=== PATIENT | male | born 1975 | race Two or more races ===

== ENCOUNTER 2025-05-11 07:15 | Emergency (ER) | payer MEDICAID, SELFPAY ==
--- OUTSIDE RECORDS SUMMARY | 2024-07-13 05:00 | XMS_ITS ---
Author Organization [facility] Address [address] [place] [address] Care Team Providers Care Senior Sql Dba Name Role Phone [facility] Provi adrian [phone] Beryl Brewer Unavailable [phone] REASON FOR VISIT Housing Encounters Encounter Location Date Provider Diagnosis [facility] [address] [place], [place] [id number] 07/13/2024 Beryl Brewer Plan Of Treatment No Information Progress Notes * Levar ROMANDOB:1975 ([age] yo M)Acc No.[id number]:07/13/2024 Case Management Patient: Levar MEJIA Provider: Elton Brewer :1975 A ge:49 Y S ex:Male Date:07/13/2024 Address:[facility] [address] [place] [id number] Pcp:[facility] [email or web address] Subjective: * Chief Complaints: * 1 . Housing. * Medical History: Objective: Assessment: Plan: * Treatment: * Images: Billing Information: * Visit Code: * Procedure Codes: Care Plan Details* * Electronic signature of Mauri Brewer on 05/11/2025 at 07:42 AM EDT Sign off status: Pending * Provider: Elton Brewer Date: 09/13/2023 Generated for Annie prasad/Cb/eTmoiz on: 07:42 AM EDT
--- NOTE | ~2025-05-11 | XR_ITS ---
EXAMINATION: XR CHEST 2 VIEWS HISTORY: Cough x 4 weeks COMPARISON: There are no prior studies available for comparison. FINDINGS: PA and lateral views of the chest are submitted. There is airspace opacity in the right lower lobe, consistent with pneumonia. The left lung is clear. There is no pleural effusion, pneumothorax, or pulmonary vascular congestion. The heart is normal in size. The bones are intact. XR/XR chest 2V IMPRESSION: Right lower lobe pneumonia. Follow-up is recommended to document resolution. Electronically signed by: Viraj Weinstein MD 05/11/2025 08:03 AM EDT
--- NOTE | ~2025-05-11 | US_ITS ---
EXAMINATION: US SCROTUM WITH DOPPLER COMPLETE, US SCROTUM HISTORY: pain radiating to testicles. COMPARISON: There are no prior studies available for comparison. FINDINGS: Real-time grayscale ultrasound imaging of the scrotum was performed. Color and spectral Doppler analysis was also performed. RIGHT TESTICLE: The right testis measures 4.1 x 2.6 x 3.0 cm and demonstrates normal homogeneous echotexture. No masses are seen. The right testis demonstrates normal arterial and venous color Doppler and spectral waveforms. RIGHT EPIDIDYMIS: Normal in size, shape, and vascularity. LEFT TESTICLE: The left testis measures 4.0 x 2.6 x 3.4 cm and demonstrates normal homogeneous echotexture. No masses are seen. The left testis demonstrates normal arterial and venous color Doppler and spectral waveforms. LEFT EPIDIDYMIS: Normal in size, shape, and vascularity. VARICOCELE: None. HYDROCELE: No significant hydrocele is seen. OTHER COMMENTS: None. US/US scrotum doppler IMPRESSION: Unremarkable scrotal ultrasound. Electronically signed by: Viraj Weinstein MD 05/11/2025 10:43 AM EDT
--- NOTE | ~2025-05-11 | US_ITS ---
EXAMINATION: US SCROTUM WITH DOPPLER COMPLETE, US SCROTUM HISTORY: pain radiating to testicles. COMPARISON: There are no prior studies available for comparison. FINDINGS: Real-time grayscale ultrasound imaging of the scrotum was performed. Color and spectral Doppler analysis was also performed. RIGHT TESTICLE: The right testis measures 4.1 x 2.6 x 3.0 cm and demonstrates normal homogeneous echotexture. No masses are seen. The right testis demonstrates normal arterial and venous color Doppler and spectral waveforms. RIGHT EPIDIDYMIS: Normal in size, shape, and vascularity. LEFT TESTICLE: The left testis measures 4.0 x 2.6 x 3.4 cm and demonstrates normal homogeneous echotexture. No masses are seen. The left testis demonstrates normal arterial and venous color Doppler and spectral waveforms. LEFT EPIDIDYMIS: Normal in size, shape, and vascularity. VARICOCELE: None. HYDROCELE: No significant hydrocele is seen. OTHER COMMENTS: None. US/US scrotum IMPRESSION: Unremarkable scrotal ultrasound. Electronically signed by: Viraj Weinstein MD 05/11/2025 10:43 AM EDT
[2025-05-11 07:19] VITALS: BP 163/98; PULSE 82; RESP 18; TEMP 36.7; O2SAT 99; BMI 26.9
--- OUTSIDE RECORDS SUMMARY | 2025-05-11 07:43 | XMS_ITS | Clinical Summary ---
Author Organization [facility] Address [address] [place] [address] Phone Care Team Providers Care Chemical Plant Manager Name Role Phone Sunday Healy NP Primary Care Provider [phone] Allergies Active Allergy Reactions Criticality Noted Date Comments Aspirin 08/31/2024 Encounters Date Type Department Care Team Description 03/08/2025 3:47 PM EDT - 03/08/2025 8:11 PM EDT Emergency [facility] Emergency [address] [place] [address] Maddy Jaramillo MD Acute nonintractable headache, unspecified headache type (Primary Dx); Lightheadedness Discharge Disposition: Home or Self Care from Last 3 Months Medical History Medical History Date Comments Hypertension Depression Anxiety Social History Tobacco Use Types Packs/Day Years Used Date Smoking Tobacco: Never Assessed Sex and Gender Information Value Date Recorded Sex Assigned at Male 08/31/2024 5:22 PM EST Legal Sex Male 5:20 AM EST Gender Identity Male 08/31/2024 5:22 PM EST Sexual Orientation Straight 08/31/2024 5: 22 PM EST Obstetrics History Last Filed Vital Signs Vital Sign Reading Time Taken Comments Blood Pressure 142/111 03/08/2025 6:23 PM EDT Pulse 76 03/08/2025 6:23 PM EDT Temperature 36.8 C (98.2 F) 03/08/2025 6:23 PM EDT Respiratory Rate 18 03/08/2025 6:23 PM EDT Oxygen Saturation 98% 03/08/2025 6:23 PM EDT Inhaled Oxygen Concentration - - Weight 77.1 kg (170 lb) 03/08/2025 11:43 AM EDT Height 172.7 cm (5' 8 ) 03/08/2025 11:43 AM EDT Body Mass Index 25.85 03/08/2025 11:43 AM EDT Plan of Treatment Health Maintenance Due Date Last Done Comments Colorectal Cancer Screening: Colonoscopy 1977 Hepatitis A Vaccines (1 of 2 - Risk 2-dose series) 1996 Hepatitis B Vaccines (1 of 3 - 19+ 3-dose series) 1996 Pneumococcal Vaccine: Pediatrics (0 to 5 Years) and At-Risk Patients (6 to 49 Years) (2 of 2 - PCV) 05/07/2020 05/07/2019 HIV Screening 07/07/2022 Social Influencers of Health Screening 07/07/2022 Depression Screening 08/04/2024 Influenza Vaccine (#1) 2025 Hypertension/CHF/CAD Annual BMP Blood Test 03/08/2026 03/08/2025, 10/19/2024, 05/24/2022 Cholesterol Screening (Lipid Panel) 05/24/2027 05/24/2022, 05/24/2022, 05/07/2019 DTaP,Tdap,and Td Vaccines (2 - Td or Tdap) 05/07/2029 05/07/2019 RSV Immunization Adult Patients (1 - 1-dose 75+ series) 2052 Hepatitis C Screening Completed 05/24/2022 COVID-19 Vaccine Completed 09/21/2024 HIB Vaccines Aged Out No longer eligi ble based on patient's age to complete this topic HPV Vaccines Aged Out No longer eligi ble based on patient's age to complete this topic IPV Vaccines Aged Out No longer eligi ble based on patient's age to complete this topic MMR Vaccines Aged Out No longer eligi ble based on patient's age to complete this topic Meningococcal ACWY Vaccine Aged Out N o longer eligible based on patient's age to complete this topic Meningococcal B Vaccine Aged Out No l onger eligible based on patient's age to complete this topic RSV Immunization Patients Under 20 months Aged Out No longer eligible b ased on patient's age to complete this topic Varicella Vaccines Aged Out No longer eligible based on patient's age to complete this topic Procedures Procedure Name Priority Date/Time Associated Diagnosis Comments ECG ANNOTATED 03/11/2025 CT HEAD WO CONTRAST STAT 03/08/2025 6 :41 PM EDT TROPONIN I HIGH SENSITIVITY Timed 03/08/2025 1:31 PM EDT XR CHEST 2 VIEWS STAT 03/08/2025 12:2 8 PM EDT CBC WITH AUTO DIFFERENTIAL STAT 03/08/2025 11:59 AM EDT B-TYPE NATRIURETIC PEPTIDE STAT 03/08/2025 11:59 AM EDT MAGNESIUM STAT 03/08/2025 11:59 AM EDT LIPASE STAT 03/08/2025 11:59 AM EDT COMPREHENSIVE METABOLIC PANEL STAT 03/08/2025 11:59 AM EDT CBC AND DIFFERENTIAL STAT 03/08/2025 11:59 AM EDT TROPONIN I HIGH SENSITIVITY Timed 03/08/2025 11:59 AM EDT ECG 12-LEAD STAT 03/08/2025 11:52 AM EDT from Last 3 Months Results * ECG-Annotated (03/11/2025) us Provider Onbase MD ECG ORDERABLES Final Result * CT Head wo Contrast (03/08/2025 6:41 PM EDT) Anatomical Region Laterality Modality Head and Neck Computed Tomogra phy 03/08/2025 6:58 PM EDT Impressions 03/08/2025 6:58 PM EDT Impression: 1. No acute intracranial abnormalities. This document has been electronically signed by: Tamir Quan MD on 03/08/2025 18:58:26 Narrative 03/08/2025 6:58 PM EDT INDICATION: hedache.dizzines since yesterday; +cocaine use CT head without contrast Comparison: None Findings: No intracranial mass, midline shift, hydrocephalus, or acute hemorrhage. No CT evidence of acute ischemia. Visualized paranasal sinuses and mastoid air cells normal. Orbits unremarkable. No skull fracture Procedure Note Tamir Quan MD - 03/08/2025 INDICATION: hedache.dizzines since yesterday; +cocaine use CT head without contrast Comparison: None Findings: No intracranial mass, midline shift, hydrocephalus, or acute hemorrhage. No CT evidence of acute ischemia. Visualized paranasal sinuses and mastoid air cells normal. Orbits unremarkable. No skull fracture IMPRESSION: Impression: 1. No acute intracranial abnormalities. This document has been electronically signed by: Tamir Quan MD on 03/08/2025 18:58:26 us Maddy Jaramillo MD IMG CT PROCEDURES Final Result * Troponin I high sensitivity (03/08/2025 1:31 PM EDT) Only the most recent of2 resultswithin the time period is included. High Sensitivity Troponin I 16 <=79 ng/L LAB CHEMISTRY METHOD 03/08/2025 2:13 PM EDT [facility] Blood Venous blood specimen / Unknown Venipuncture / Unknown 03/08/2025 1:31 PM EDT 03/08/2025 1:41 PM EDT Narrative [facility] - 03/08/2025 2:13 PM EDT High levels of biotin in samples may falsely decrease hsTroponin values. Use caution when interpreting hsTroponin results in patients taking biotin who exhibit renal impairment (eGFR <60) or in patients taking more than 20 mg/day of biotin. us Maddy Jaramillo MD LAB BLOOD ORDERABLES Final Resul t [facility] [address] [place] [address], * XR Chest 2 Views (03/08/2025 12:28 PM EDT) Anatomical Region Laterality Modality Body Radiographic Prema ging 03/08/2025 12:4 3 PM EDT Impressions 03/08/2025 12:44 PM EDT Impression: Stable radiographic appearance of the chest. No active pulmonary process identified. Telerad MELA ([id number]) -------- FINAL REPORT -------- Dictated By: Prerna Edwards Dictated Date: 03/08/2025 12:43 ET Assigned Physician: Prerna Edwards Reviewed and Electronically Signed By: Prerna Edwards Signed Date: 03/08/2025 12:44 ET Workstation ID: [id number] Transcribed By: Self Edit Transcribed Date: 03/08/2025 12:43 ET Narrative 03/08/2025 12:44 PM EDT History: Chest pain. Comparison: 10/19/24 Findings: Upright AP and lateral views of the chest. This is a poor inspiration. The cardiac silhouette remains normal in size. Hilar contours and pulmonary vascularity are within normal limits. The lungs are clear. The costophrenic angles are sharp. The regional skeleton is intact. Procedure Note Prerna Edwards MD - 03/08/2025 History: Chest pain. Comparison: 10/19/24 Findings: Upright AP and lateral views of the chest. This is a poor inspiration. Thecardiac silhouette remains normal in size. Hilar contours and pulmonaryvascularity are within normal limits. The lungs are clear. Thecostophrenic angles are sharp. The regional skeleton is intact. IMPRESSION: Impression: Stable radiographic appearance of the chest. No active pulmonary processidentified. Telerad MELA ([id number]) -------- FINAL REPORT -------- Dictated By: Prerna Edwards Dictated Date: 03/08/2025 12:43 ET Assigned Physician: Prerna Edwards Reviewed and Electronically Signed By: Prerna Edwards Signed Date: 03/08/2025 12:44 ET Workstation ID: [id number] Transcribed By: Self Edit Transcribed Date: 03/08/2025 12:43 ET Maddy Jaramillo MD IMG XR PROCEDURES Final Result * (ABNORMAL) CBC auto differential (03/08/2025 11:59 AM EDT) [facility] WBC 5.2 4.8 - 10.8 K/mcL LAB HEMETOLOGY METHOD 03/08/2025 12:31 PM [facility] RBC 4.70 4.50 - 5.50 M/mcL LAB HEMETOLOGY METHOD 03/08/2025 12:31 PM [facility] Hemoglobin 13.7 13.5 - 17.5 g/dL LAB HEMETOLOGY METHOD 03/08/2025 12:31 PM [facility] Hematocrit 40.8(L) 42.0 - 54.0 % LAB HEMETOLOGY METHOD 03/08/2025 12:31 PM [facility] MCV 87.0 79.0 - 98.0 FL LAB HEMETOLOGY METHOD 03/08/2025 12:31 PM [facility] MCH 29.2 27.0 - 32.0 pcg LAB HEMETOLOGY METHOD 03/08/2025 12:31 PM [facility] MCHC 33.6 32.0 - 37.0 g/dL LAB HEMETOLOGY METHOD 03/08/2025 12:31 PM [facility] RDW 12.8 11.0 - 15.0 % LAB HEMETOLOGY METHOD 03/08/2025 12:31 PM [facility] Platelets 217 130 - 400 K/mcL LAB HEMETOLOGY METHOD 03/08/2025 12:31 PM [facility] MPV 9.3 7.0 - 11.0 FL LAB HEMETOLOGY METHOD 03/08/2025 12:31 PM [facility] NRBC 0.0 <1.0 % LAB HEMETOLOGY METHOD 03/08/2025 12:31 PM [facility] NRBC Absolute 0.00 <0.10 K/mcL LAB HEMETOLOGY METHOD 03/08/2025 12:31 PM [facility] Neutrophils Relative 43.0 % LAB HEMETOLOGY METHOD 03/08/2025 12:31 PM [facility] Lymphocytes Relative 46.6 % LAB HEMETOLOGY METHOD 03/08/2025 12:31 PM [facility] Monocytes Relative 6.9 % LAB HEMETOLOGY METHOD 03/08/2025 12:31 PM [facility] Eosinophils Relative 2.7 % LAB HEMETOLOGY METHOD 03/08/2025 12:31 PM [facility] Basophils Relative 0.6 % LAB HEMETOLOGY METHOD 03/08/2025 12:31 PM [facility] Immature Granulocytes Relative 0.2 % LAB HEMETOLOGY METHOD 03/08/2025 12:31 PM [facility] Neutrophils Absolute 2.25 1.50 - 7.00 K/mcL LAB HEMETOLOGY METHOD 03/08/2025 12:31 PM [facility] Lymphocytes Absolute 2.43 1.00 - 5.00 K/mcL LAB HEMETOLOGY METHOD 03/08/2025 12:31 PM [facility] Monocytes Absolute 0.36 0.20 - 1.00 K/mcL LAB HEMETOLOGY METHOD 03/08/2025 12:31 PM [facility] Eosinophils Absolute 0.14 0.00 - 0.50 K/mcL LAB HEMETOLOGY METHOD 03/08/2025 12:31 PM [facility] Basophils Absolute 0.03 0.00 - 0.20 K/mcL LAB HEMETOLOGY METHOD 03/08/2025 12:31 PM [facility] Immature Granulocytes Absolute 0.01 0.00 - 0.03 K/mcL LAB HEMETOLOGY METHOD 03/08/2025 12:31 PM EDT [facility] Blood Venous blood specimen / Unknown Venipuncture / Unknown 03/08/2025 11:59 AM EDT 03/08/2025 12:23 PM EDT us Maddy Jaramillo MD LAB BLOOD ORDERABLES Final Resul t Performing Organization Address [facility]/ZIP Co de Phone Number [facility] [address] [place] [address], [place] [phone] * B-type natriuretic peptide (03/08/2025 11:59 AM EDT) BNP 12 <=100 pcg/mL LAB CHEMISTRY METHOD 03/08/2025 12:59 PM EDT [facility] Blood Venous blood specimen / Unknown Venipuncture / Unknown 03/08/2025 11:59 AM EDT 03/08/2025 12:23 PM EDT us Maddy Jaramillo MD LAB BLOOD ORDERABLES Final Resul t Performing Organization Address [facility]/ZIP Co de Phone Number [facility] [address] [place] [address], [place] [phone] * Magnesium (03/08/2025 11:59 AM EDT) Magnesium 2.1 1.9 - 2.6 mg/dL LAB CHEMISTRY METHOD 03/08/2025 12:57 PM EDT [facility] Blood Venous blood specimen / Unknown Venipuncture / Unknown 03/08/2025 11:59 AM EDT 03/08/2025 12:23 PM EDT us Maddy Jaramillo MD LAB BLOOD ORDERABLES Final Resul t Performing Organization Address City/[facility]/ZIP Co de Phone Number [facility] [address] [place] [address], [place] [phone] * Lipase (03/08/2025 11:59 AM EDT) Lipase 39 13 - 75 unit/L LAB CHEMISTRY METHOD 03/08/2025 12:57 PM [facility] Blood Venous blood specimen / Unknown Venipuncture / Unknown 03/08/2025 11:59 AM EDT 03/08/2025 12:23 PM EDT us Maddy Jaramillo MD LAB BLOOD ORDERABLES Final Resul t [facility] [address] [place] [address], * (ABNORMAL) Comprehensive metabolic panel (03/08/2025 11:59 AM EDT) Pathologist [facility] Sodium 141 133 - 145 mmol/L LAB CHEMISTRY METHOD 03/08/2025 12:58 PM [facility] Potassium 3.6 3.5 - 5.5 mmol/L LAB CHEMISTRY METHOD 03/08/2025 12:58 PM [facility] Chloride 107 96 - 110 mmol/L LAB CHEMISTRY METHOD 03/08/2025 12:58 PM [facility] CO2 29 21 - 32 mmol/L LAB CHEMISTRY METHOD 03/08/2025 12:58 PM [facility] Anion Gap 5 3 - 11 LAB CHEMISTRY METHOD 03/08/2025 12:58 PM [facility] Glucose 110(H) 70 - 100 mg/dL LAB CHEMISTRY METHOD 03/08/2025 12:58 PM [facility] BUN 12 5 - 25 mg/dL LAB CHEMISTRY METHOD 03/08/2025 12:58 PM [facility] Creatinine 1.00 0.70 - 1.30 mg/dL LAB CHEMISTRY METHOD 03/08/2025 12:58 PM [facility] eGFR 93 >=60 mL/min/1. 73m2 LAB CHEMISTRY METHOD 03/08/2025 12:58 PM EDT [facility] Comment:Calculation based on the Chronic Kidney Disease Epidemiology Collaboration (CKD-EPI) equation refit without adjustment for race. BUN/Creatinine Ratio 12.0 LAB CHEMISTRY METHOD 03/08/2025 12:58 PM [facility] Calcium 9.1 8.5 - 10.5 mg/dL LAB CHEMISTRY METHOD 03/08/2025 12:58 PM [facility] AST (SGOT) 22 10 - 42 unit/L LAB CHEMISTRY METHOD 03/08/2025 12:58 PM [facility] ALT (SGPT) 29 10 - 60 unit/L LAB CHEMISTRY METHOD 03/08/2025 12:58 PM [facility] Alkaline Phosphatase 68 42 - 121 unit/L LAB CHEMISTRY METHOD 03/08/2025 12:58 PM [facility] Total Protein 6.3 6.0 - 8.0 g/dL LAB CHEMISTRY METHOD 03/08/2025 12:58 PM [facility] Albumin 3.7 3.2 - 5.0 g/dL LAB CHEMISTRY METHOD 03/08/2025 12:58 PM [facility] Total Bilirubin 0.2 0.0 - 1.4 mg/dL LAB CHEMISTRY METHOD 03/08/2025 12:58 PM [facility] Blood Venous blood specimen / Unknown Venipuncture / Unknown 03/08/2025 11:59 AM EDT 03/08/2025 12:23 PM EDT us Maddy Jaramillo MD LAB BLOOD ORDERABLES Final Resul t [facility] [address] [place] [address], * ECG 12 lead (03/08/2025 11:52 AM EDT) Ventricular Rate ECG 66 BPM GEMUSE Atrial Rate 66 BPM GEMUSE P-R Interval 128 ms GEMUSE QRS Duration 84 ms GEMUSE Q-T Interval 476 ms GEMUSE QTc 499 ms GEMUSE P Wave [place] 51 degrees GEMUSE R [place] 58 degrees GEMUSE T [place] 29 degrees GEMUSE ECG Interpretation Normal sinus rhythm Minimal voltage criteria for LVH, may be normal variant ( Sokolow-Felder ) Statement not found (#[id number]) Abnormal ECG When compared with ECG of 19-OCT-2024 15:25, T wave inversion now evident in Anterior leads Confirmed by JAZLYN DONNELLY ([id number]) on 03/08/2025 4:34:13 PM GEMUSE 03/08/2025 11:5 2 AM EDT 03/08/2025 4:34 PM EDT us Maddy Jaramillo MD ECG ORDERABLES Final Result GEMUSE from Last 3 Months Insurance MEDICAID - [place] Care Teams Chemical Plant Manager Relationship Specialty Start Date End Date Sunday Healy NP [address] [place] [address] PCP - General Nurse Practitioner 08/31/24
--- OUTSIDE RECORDS SUMMARY | 2025-05-11 07:43 | XMS_ITS | Clinical Summary ---
Author Organization [facility] Address [address] [facility] [address] [place] [address] Care Team Providers Care Manager Drug Name Role Phone Unavailable Primary Care Provider Unavailabl e Encounters Date Type Department Care Team Description 02/22/2025 Population Health Risk Score [facility] (C[facility]) Department [address] [facility] [address] [place] [id number] Provider, Population Health Generic from Last 3 Months Social History Tobacco Use Types Packs/Day Years Used Date Smoking Tobacco: Never Assessed Sex and Gender Information Value Date Recorded Sex Assigned at Not on file Legal Sex Male 9:21 PM EDT Gender Identity Not on file Sexual Orientation Not on file Plan of Treatment Health Maintenance Due Date Last Done Comments CT Colonography 1977 Colonoscopy 1977 Colorectal Cancer Screening 1977 Depression Screening 1977 FIT DNA/Cologuard 1977 FIT 1977 FOBT 1975 HIV Screening 1975 Lipid Panel 1977 SDOH Screening 1975 Sigmoidoscopy 1977 Disability Screening 1977 Alcohol/Substance Use Screening 1989 Tobacco Screening 1989 Family Planning (PISQ) 1992 Hepatitis C Screening 1995 DTaP/Tdap/Td Vaccines (1 - Tdap) 1996 Hepatitis B Vaccines (1 of 3 - 19+ 3-dose series) 1996 COVID-19 Vaccine (1 - 2023-2 5 season) 2025 Influenza Vaccine (#1) 2025 Zoster Vaccines (1 of 2) 2027 RSV Patients and Pa tients Aged 60 years or older (1 - 1-dose 75+ series) 2052 HIB Vaccines Aged Out No longer eligi ble based on patient's age to complete this topic HPV Vaccines Aged Out No longer eligi ble based on patient's age to complete this topic Hepatitis A Vaccines Aged Out No long er eligible based on patient's age to complete this topic IPV Vaccines Aged Out No longer eligi ble based on patient's age to complete this topic Meningococcal B Vaccine Aged Out No l onger eligible based on patient's age to complete this topic Meningococcal Vaccine Aged Out No kevin shruthi eligible based on patient's age to complete this topic Pneumococcal Vaccine: Pediat rics (0 to 5 Years) and At-Risk Patients (6 to 49) Years Aged Out No longer eligible b ased on patient's age to complete this topic RSV under 20 months Aged Out No longe r eligible based on patient's age to complete this topic Rotavirus Vaccines Aged Out No longer eligible based on patient's age to complete this topic
--- OUTSIDE RECORDS SUMMARY | 2025-05-11 07:43 | XMS_ITS | Patient Health Record ---
Author Organization [facility] Address [address] [place] [address] Care Team Providers Care Coin Machine Servicer Repairer Name Role Phone [facility] Provi adrian [phone] Beryl Brewer [facility] Reason For Referral No Information Encounters Encounter Location Date Provider Diagnosis [facility] [address] [place], [place] [phone] 07/09/2024 Beryl Brewer [facility] [phone] 03/21/2025 Beryl Brewer Plan Of Treatment No Information Insurance Providers Payer Name Payer Address Payer Phone Subscriber Number Group Number Insured Name Patient Relationship to Insured Coverage Start Date Coverage End Date [place] Medicaid Standard [address] [place] [address] [id number] Levar Sheffield Self - patient is the insured 2
--- NOTE | 2025-05-11 08:03 | ED_ITS ---
HPI - General Adult General Chief complaint: Upper Respiratory Symptoms Stated complaint: congestion, no taste, dizziness, mult comp Time Seen by Provider: 05/11/25 07:43 Source: patient, RN notes reviewed and old records reviewed Mode of arrival: ambulatory Limitations: no limitations History of Present Illness ED Provider: DARIO Levine HPI narrative: 49-year-old male with medical history of asthma, HTN, presents to ED due to 4 weeks of productive cough, chills, subjective fevers, loss of taste/smell and headache. Patient reports symptoms have been persistent for 1 month and has been taking robitussin and tylenol without effect. Patient reports a tender lump in his groin that he as noticed after coughing so much with pain radiating into the testicles. Additionally, patient states he is concerned for STI's and has had a lesion on the ventral side of the penis that is not painful unless urine touches it. Denies sick contacts, recent travel, chest pain, SOB, difficulty breathing, abdominal pain, nausea, vomiting, MD complaint: cough, penile lesion, lump in groin Related Data Previous Rx's ?Medication ?Instructions ?Recorded acetaminophen 500 mg tablet 500 mg PO Q6H PRN fever or pain 05/11/25 (Tylenol Extra Strength) #30 tabs albuterol sulfate 2.5 mg/0.5 mL 5 mg inhalation Q6H OH N shortness 05/11/25 solution for nebulization of breath or wheezing #30 ea albuterol sulfate 90 mcg/actuation 1 inh inhalation QI D PRN shortness 05/11/25 aerosol inhaler (Ventolin HFA) of breath or wheezing # 6.7 grams amoxicillin 875 mg-potassium 1 tab PO BID #10 tabs 03/28 clavulanate 125 mg tablet azithromycin 250 mg tablet See Rx Instructions PO .COM PLEX #6 05/11/25 tabs ibuprofen 200 mg capsule 200 mg PO Q8H PRN fever or p ain 05/11/25 #30 caps Allergies Allergy/AdvReac Type Severity Reaction Status Date / Time aspirin Allergy Hives Verified 05/11/25 07:22 Review of Systems 2 Review of Systems: CONST: Negative for fever, body aches and chills. HENT: Negative for neck pain/stiffness, congestion, sore throat, swelling. POS headache EYES: Negative for discharge/pain or vision changes. RESP: Negative for hemoptysis and shortness of breath. POS productive cough CV: Negative chest pain, difficulty breathing, palpitations. POS lung tightness ABD: Negative pain, nausea, vomiting. : Negative increase frequency, dysuria, blood in urine or stool. POS penile lesion MUSC: Negative for muscle aches, edema. SKIN: Negative rash, lesions/sores. NEURO: Negative headache, dizziness, weakness. Yes all other systems are reviewed and are negative PMFSH Past Medical History Attestation statement: The following information was validated with the patient. Source: old records reviewed and nursing notes reviewed Social History Social History Unable to assess alcohol history related to: Unknown Smoked in Last 30 Days: Yes Use of substances other than those prescribed or required for medical reasons: Unknown Advance Directives: No Advance Directives Information Provided: Yes Physical Exam ED Vital Signs: Vital Signs - 24 hr 05/11/25 07:19 05/11/25 08:12 Temperature 98.0 F Pulse Rate 82 76 Respiratory Rate 18 16 Blood Pressure 163/98 H 147/79 H Pulse Oximetry 99 100 Oxygen Delivery Method Room Air Room Air BMI result Body Mass Index 26.9 GENERAL APPEARANCE: ?AxOx4, no acute distress. HEENT: ?NC, AT. MMM. EOMI, clear conjunctiva, oropharynx clear. NECK: ?Supple without lymphadenopathy.? No stiffness or restricted ROM. HEART:? Normal rate and regular rhythm, normal S1/S2, no m/r/g LUNGS:? Mild expiratory wheeze, with coarse rhonchi of bilateral lung bases ABDOMEN: ?Soft, nontender, nondistended : single painless lesion on the ventral aspect of meatus, no other lesions, vesicles or growths noted on the external genitalia, lymphadenopathy palpated in R inguinal region without bulging, no bulge on valsalva, no overlying skin changes. diffuse tenderness to palpation of testicles, cremasteric reflex intact. BACK: No CVAT, no obvious deformity. EXTREMITIES: ?Without cyanosis, clubbing or edema. NEUROLOGICAL: ?Grossly nonfocal. Alert and oriented, moving all 4 extremities. Observed to ambulate with normal gait. Skin: ?Warm and dry without any rash. Medications Administered Discontinued Medications Generic Name Dose Route Start Last Admin Trade Name Freq PRN Reason Stop Dose Admin Lactated Ringer's 1,000 mls @ 999 mls/hr 05/11/25 08:04 05/11/25 09:31 Lr IV 05/11/25 09:04 Infused .Q1H1M ONE Infusion Acetaminophen 1,000 mg in 100 mls @ 400 mls/hr 05/11/25 08:04 05/11/25 08:38 Ofirmev IV 05/11/25 08:18 Infused ONCE ONE Infusion Ketorolac Tromethamine 15 mg 05/11/25 08:09 05/11/25 08:23 Ketorolac Tromethamine 15 Mg/Ml Vial IVPUSH 05/11/25 08:10 15 mg ONCE ONE Administration Penicillin G Benzathine 2,400,000 unit 05/11/25 09:41 05/11/25 10:08 Penicillin G Benzathine 2,400,000 Unit/4 Ml Syringe IM 05/11/25 09:42 2,400,000 unit ONCE ONE Administration Medical Decision Making Medical Decision Making MDM Narrative: 49-year-old male with medical history of asthma, HTN, presents to ED due to 4 weeks of productive cough, chills, subjective fevers, loss of taste/smell and headache. Patient reports symptoms have been persistent for 1 month and has been taking robitussin and tylenol without effect. Patient reports a tender lump in his groin that he as noticed after coughing so much with pain radiating into the testicles. Additionally, patient states he is concerned for STI's and has had a lesion on the ventral side of the penis that is not painful unless urine touches it VS on initial observation-BP 147 over 79, pulse rate of 76, respiratory rate of 16, afebrile with oral temp of 98.0?, O2 saturation 100% on room air. On physical exam lungs have mild expiratory wheeze with coarse rhonchi throughout bilateral lung bases, cardiac exam reveals normal rate and rhythm without murmurs/rubs/gallops, abdomen is soft, nondistended, no guarding, nontender. exam reveals 1 singular painless lesion to the ventral meatus without exudates or discharge, testicles diffusely tender to palpation, without lesions or overlying skin changes or edema. Labs without leukocytosis/leukopenia, H&H stable, no electrolyte imbalance. Viral serology negative for COVID/influenza. T pallidum ab is reactive, patient has never been treated for syphilis in the past. Patient will be treated with 2.4 million units IM penicillin G for treatment. Urine CT/NG negative. Currently awaiting herpes simplex culture. CXR reveals a right lower lobe pneumonia. U/S scrotum Doppler reveals a normal exam. Patient is nontoxic appearing, afebrile with oral temp of 98?, no leukocytosis/leukopenia, no confusion/altered mental status, curb 65 score of 0. Patient with a presumed primary stage syphilis as there is a single painless chancre of the meatus with reactive lymphandenopathy of the R groin. no confusion, or mucosal involvement noted, patient denies prior history or treatment for syphilis. Patient treated for positive syphilis today with 2.4 million units IM pen G. Patient being discharged with a Z-Alhaji for community- acquired pneumonia. Additionally, patient is requesting albuterol inhaler as he has run out of his medication. I counseled patient on safe sex practices while being treated for syphilis, encouraged to follow up with his primary care doctor. I encouraged his to seek care and testing as well. Patient was counseled on strict return precautions. Patient agreeable with the plan. Differential Diagnosis Differential Diagnoses: The differential diagnosis associated with the presentation includes Bronchitis Pneumonia Viral illness COVID Flu STI Epididymitis Testicular torsion Admission/Observation Consideration of admission/observation: Escalation of care including admission/observation considered Lab Data MDM Lab Attestation statement: I reviewed the patient's lab results. 05/11/25 08:17 05/11/25 08:17 Labs: Lab Results 05/11/25 05/11/25 05/11/25 Range/Units 07:47 08:14 08:17 WBC 7.0 (4.8-10.8) X10*3/uL RBC 4.81 (4.60-5.80) X10*6/uL Hgb 14.1 (14.0-18.0) g/dl Hct 41.4 L (42.0-52.0) % MCV 86.1 (80.0-98.0) fL MCH 29.3 (27.0-33.0) pg MCHC 34.1 (31.0-36.0) g/dl RDW 12.7 (11.0-16.0) % Plt Count 274 (160-400) X10*3/uL MPV 8.4 L (9.4-12.4) fL Immature Gran % (Auto) 0.4 (0.0-0.4) % Neut % (Auto) 63.9 (45-73) % Lymph % (Auto) 25.3 (20-40) % [place] % (Auto) 8.6 (2-11) % Eos % (Auto) 1.4 (0-4) % Baso % (Auto) 0.4 (0-2) % Lymph # (Auto) 1.8 (1.2-4.9) X10*3/uL [place] # (Auto) 0.6 (0.1-1.2) X10*3/uL Eos # (Auto) 0.1 (0.0-0.4) X10*3/uL Baso # (Auto) 0.0 (0.0-0.2) X10*3/uL Abs Immat Gran (auto) 0.03 (0.00-0.03) X10*3/uL Absolute Neuts (auto) 4.5 (2.0-8.3) x10*3/uL Absolute Nucleated RBC 0.000 (0.0-0.012) X10*3/uL Nucleated RBC % (auto) 0.0 (0.0-0.2) /100WBC Sodium 144 (135-145) mmol/L Potassium 4.2 (3.3-5.1) mmol/L Chloride 107 (96-108) mmol/L Carbon Dioxide 29 (22-29) mmol/L Anion Gap 12 (12-20) BUN 6 L (9-16) mg/dL Creatinine 0.79 (0.5-1.4) mg/dL Estim Creat Clear Calc 111.8 Estimated GFR > 60 Random Glucose 94 (60-115) mg/dL Calcium 9.1 (8.4-10.2) mg/dL Magnesium 2.1 (1.6-2.6) mg/dL Total Bilirubin 0.3 (0.0-1.0) mg/dL AST 26 (5-37) U/L ALT 18 (0-40) U/L Alkaline Phosphatase 87 (39-117) U/L Total Protein 7.1 (6.5-8.0) g/dL Albumin 4.0 (3.5-5.0) g/dL Urine Color Urine Appearance Urine pH (5.0-9.0) Ur Specific [place] (1.005-1.025) Urine Protein (Neg-Trace) mg/dL Urine Glucose (UA) (Negative) mg/dL Urine Ketones (Negative) mg/dL Urine Blood (Negative) Urine Nitrite (Negative) Ur Leukocyte Esterase (Negative) Urine RBC (0-2) /HPF Urine WBC (0-5) /HPF Ur Squamous Epith Cells (0-2) /HPF Urine Bacteria (None Seen) Hyaline Casts (0-2) /LPF Ur N gonorrhoeae DNA (PCR) NOT DETECTED (Not Detect.) T.pallidum Ab (EIA) Reactive A (Nonreactive) Ur Chlamydia DNA (PCR) NOT DETECTED (Not Detect.) COVID-19 (FABIAN) Negative (Negative) COVID-19 Clin Com See Note Influenza Type A (RABIA) Negative (Negative) Influenza Type B (RABIA) Negative (Negative) Influenza A & B Note See Note 05/11/25 Range/Units 08:21 WBC (4.8-10.8) X10*3/uL RBC (4.60-5.80) X10*6/uL Hgb (14.0-18.0) g/dl Hct (42.0-52.0) % MCV (80.0-98.0) fL MCH (27.0-33.0) pg MCHC (31.0-36.0) g/dl RDW (11.0-16.0) % Plt Count (160-400) X10*3/uL MPV (9.4-12.4) fL Immature Gran % (Auto) (0.0-0.4) % Neut % (Auto) (45-73) % Lymph % (Auto) (20-40) % [place] % (Auto) (2-11) % Eos % (Auto) (0-4) % Baso % (Auto) (0-2) % Lymph # (Auto) (1.2-4.9) X10*3/uL [place] # (Auto) (0.1-1.2) X10*3/uL Eos # (Auto) (0.0-0.4) X10*3/uL Baso # (Auto) (0.0-0.2) X10*3/uL Abs Immat Gran (auto) (0.00-0.03) X10*3/uL Absolute Neuts (auto) (2.0-8.3) x10*3/uL Absolute Nucleated RBC (0.0-0.012) X10*3/uL Nucleated RBC % (auto) (0.0-0.2) /100WBC Sodium (135-145) mmol/L Potassium (3.3-5.1) mmol/L Chloride (96-108) mmol/L Carbon Dioxide (22-29) mmol/L Anion Gap (12-20) BUN (9-16) mg/dL Creatinine (0.5-1.4) mg/dL Estim Creat Clear Calc Estimated GFR Random Glucose (60-115) mg/dL Calcium (8.4-10.2) mg/dL Magnesium (1.6-2.6) mg/dL Total Bilirubin (0.0-1.0) mg/dL AST (5-37) U/L ALT (0-40) U/L Alkaline Phosphatase (39-117) U/L Total Protein (6.5-8.0) g/dL Albumin (3.5-5.0) g/dL Urine Color Yellow Urine Appearance Clear Urine pH 8.0 (5.0-9.0) Ur Specific [place] <= 1.005 (1.005-1.025) Urine Protein Negative (Neg-Trace) mg/dL Urine Glucose (UA) Negative (Negative) mg/dL Urine Ketones Negative (Negative) mg/dL Urine Blood Trace H (Negative) Urine Nitrite Negative (Negative) Ur Leukocyte Esterase Negative (Negative) Urine RBC 0-2 (0-2) /HPF Urine WBC 0-5 (0-5) /HPF Ur Squamous Epith Cells 0-2 (0-2) /HPF Urine Bacteria None Seen (None Seen) Hyaline Casts 0-2 (0-2) /LPF Ur N gonorrhoeae DNA (PCR) (Not Detect.) T.pallidum Ab (EIA) (Nonreactive) Ur Chlamydia DNA (PCR) (Not Detect.) COVID-19 (FABIAN) (Negative) COVID-19 Clin Com Influenza Type A (RABIA) (Negative) Influenza Type B (RABIA) (Negative) Influenza A & B Note Independent Interpretation I performed an independent interpretation of an: Plain X-Ray and Ultrasound Interpretation: I personally interpreted the CXR which reveals right-sided lower lobe pneumonia, I agree with the radiologist's interpretation I personally interpreted the scrotal ultrasound which revealed a normal exam, I agree with the radiologist's interpretation Radiology Impression Discussion of test interpretation with radiology: I have reviewed the radiologist's reading. Radiologist Impression: CXR FINDINGS: PA and lateral views of the chest are submitted. There is airspace opacity in the right lower lobe, consistent with pneumonia. The left lung is clear. There is no pleural effusion, pneumothorax, or pulmonary vascular congestion. The heart is normal in size. The bones are intact. XR/XR chest 2V IMPRESSION: Right lower lobe pneumonia. Follow-up is recommended to document resolution. Electronically signed by: Viraj Weinstein MD 05/11/2025 08:03 AM EDT Dictated By: Viraj Weinstein MD Signed By: <Electronically signed by Viraj Weinstein MD in OV> 05/11/25 0803 Scrotal ultrasound FINDINGS: Real-time grayscale ultrasound imaging of the scrotum was performed. Color and spectral Doppler analysis was also performed. RIGHT TESTICLE: The right testis measures 4.1 x 2.6 x 3.0 cm and demonstrates normal homogeneous echotexture. No masses are seen. The right testis demonstrates normal arterial and venous color Doppler and spectral waveforms. RIGHT EPIDIDYMIS: Normal in size, shape, and vascularity. LEFT TESTICLE: The left testis measures 4.0 x 2.6 x 3.4 cm and demonstrates normal homogeneous echotexture. No masses are seen. The left testis demonstrates normal arterial and venous color Doppler and spectral waveforms. LEFT EPIDIDYMIS: Normal in size, shape, and vascularity. VARICOCELE: None. HYDROCELE: No significant hydrocele is seen. OTHER COMMENTS: None. US/US scrotum IMPRESSION: Unremarkable scrotal ultrasound. Electronically signed by: Viraj Weinstein MD 05/11/2025 10:43 AM EDT RP Dictated By: Viraj Weinstein MD Signed By: <Electronically signed by Viraj Weinstein MD in OV> 05/11/25 1043 Independent Historian Clinical information obtained from an independent historian. History obtained from or confirmed by: Spouse ( at bedside corroborating history) External Record Review External record reviewed: Inpatient record, Office record and Outpatient record Chronic Conditions Patient?s care impacted by: Hypertension and Other (Asthma) Social Determinants Patient?s care significantly limited by Social Determinants of Health including: Other Social Determinant of Health Discharge Plan Discharge Clinical Impression: Syphilis, Pneumonia Patient Disposition: Home, Self-Care Additional Instructions: You were evaluated in the ED due to 1 month of cough, body aches, chills and concerns for STI. Your blood work was normal today. You were tested for chlamydia, gonorrhea, herpes, syphilis while in the department today. Your chlamydia and gonorrhea were negative. Your syphilis test was positive. We are still awaiting the herpes test and you will be called if this is positive. Your chest x-ray revealed a right lower lobe pneumonia. The ultrasound of your testicles was normal. You received an intramuscular injection of penicillin G today to cover for primary stage of syphilis. Please follow up with your primary care doctor on this diagnosis. You are being prescribed a 5 day course of azithromycin and Augmentin which is an antibiotic to cover pneumonia. Please take this antibiotic as indicated, and complete the entire course. I recommend that you follow up with your primary care doctor to ensure resolution of pneumonia, and syphilis. At home to manage body aches and fever you can take 500 mg of Tylenol, 400 mg of ibuprofen every 6 hours. Make sure to get plenty of hydration, nutritious food and rest. Please return to the emergency department if you experience fevers over 100.4? that are not managed by Tylenol/ibuprofen, worsening cough, chest pain, shortness of breath, or any new/worsening/concerning symptoms. Prescriptions: New azithromycin 250 mg tablet See Rx Instructions .ROUTE .COMPLEX Qty: 6 0RF Rx Instructions: For 250 mg dose pack: take 500 mg today (day 1), then 250 mg for 4 days (days 2-5) albuterol sulfate [Ventolin HFA] 90 mcg/actuation HFA aerosol inhaler 1 inh inhalation QID PRN (Reason: shortness of breath or wheezing) Qty: 6.7 0RF amoxicillin-pot clavulanate 875-125 mg tablet 1 tab PO BID Qty: 10 0RF ibuprofen 200 mg capsule 200 mg PO Q8H PRN (Reason: fever or pain) Qty: 30 0RF acetaminophen [Tylenol Extra Strength] 500 mg tablet 500 mg PO Q6H PRN (Reason: fever or pain) Qty: 30 0RF albuterol sulfate 2.5 mg/0.5 mL solution for nebulization 5 mg inhalation Q6H PRN (Reason: shortness of breath or wheezing) Qty: 30 0RF Discharge Date/Time: 05/11/25 11:57 Print Language: [place]
[2025-05-11 08:12] VITALS: BP 147/79; PULSE 76; RESP 16; O2SAT 100
[2025-05-11 08:21] LABS: MANUAL DIFF FLAG NO
[2025-05-11] MEDS: Lactated Ringers 1,000 ML 999 ML IV (08:23)
[2025-05-11 08:26] LABS: IDNOW Serial# 55D5AD1C; Influenza B2 Negative (Negative)
[2025-05-11 08:27] LABS: COVID-19 Test Negative (Negative); IDNOW Serial# 58CA691E
[2025-05-11 08:29] LABS: Hematocrit 41.4 % (42.0-52.0); Hemoglobin 14.1 g/dl (14.0-18.0); Imm Gran Abs Auto 0.03 X10*3/uL (0.00-0.03); Imm Gran Pct Auto 0.4 % (0.0-0.4); Lymphocytes Absolute Auto 1.8 X10*3/uL (1.2-4.9); Mean Corpuscular HGB Conc 34.1 g/dl (31.0-36.0); Mean Corpuscular Hemoglobin 29.3 pg (27.0-33.0); Mean Corpuscular Volume 86.1 fL (80.0-98.0); NRBC Abs Auto 0.000 X10*3/uL (0.0-0.012); NRBC Pct Auto 0.0 /100WBC (0.0-0.2); Platelet Count 274 X10*3/uL (160-400); Red Blood Count 4.81 X10*6/uL (4.60-5.80); White Blood Count 7.0 X10*3/uL (4.8-10.8)
[2025-05-11 08:32] LABS: Appearance Urine Clear; Glucose Urine UA Negative (Negative); PH 8.0 (5.0-9.0); Specific Gravity - Urine <= 1.005 (1.005-1.025); UMIC TRIGGER UACC YES
[2025-05-11 08:38] LABS: Alanine Aminotransferase 18 U/L (0-40); Albumin Level 4.0 g/dL (3.5-5.0); Alkaline Phosphatase 87 U/L (39-117); Anion Gap 12 (12-20); Aspartate Amino Transferase 26 U/L (5-37); Blood Urea Nitrogen 6 mg/dL (9-16); Calcium 9.1 mg/dL (8.4-10.2); Carbon Dioxide 29 mmol/L (22-29); Chloride 107 mmol/L (96-108); Creatinine Clr Calc Pharmacy 111.8; Estimated Glomerular Filt Rate > 60; Magnesium 2.1 mg/dL (1.6-2.6); Potassium 4.2 mmol/L (3.3-5.1); Sodium 144 mmol/L (135-145); Total Protein 7.1 g/dL (6.5-8.0)
[2025-05-11 09:01] LABS: Syphilis Screen Reactive (Nonreactive)
[2025-05-11 09:56] LABS: CT PCR Urine NOT DETECTED (Not Detect.); NG PCR Urine NOT DETECTED (Not Detect.)
[2025-05-19 13:00] LABS: T.Pallidum Particle Agg Test Reactive (Nonreactive)
== END 2025-05-11 11:57 | disposition home or self-care (01) ==
PROVIDERS: Emergency Provider Emergency Medicine; PCP Dentist General Practice
DX: J18.9 Pneumonia, unspecified organism (principal); A51.0 Primary genital syphilis; R05.9 Cough, unspecified; R51.9 Headache, unspecified; R10.23 Pelvic and perineal pain bilateral; Z11.52 Encounter for screening for COVID-19; Z79.899 Other long term (current) drug therapy
CPT/HCPCS: 36415; 71046; 76870; 80053; 81001; 83735; 85025; 86592; 86780; 87255; 87491; 87502; 87591; 87635; 93975; 96361; 96372; 96374; 96375; 99285; J0131; J0561; J1885; J7120

== ENCOUNTER → 2025-05-11 07:24 | Outpatient (BNV) | payer MEDICAID, SELFPAY | PROVIDERS: Emergency Provider Emergency Medicine; PCP Dentist General Practice; Visit Provider Radiology Diagnostic Radiology | DX: N50.819 Testicular pain, unspecified (principal); R19.09 Other intra-abdominal and pelvic swelling, mass and lump; J18.9 Pneumonia, unspecified organism | CPT/HCPCS: 71046; 76870; 93975 ==